=== PATIENT | female | born 2000 | race Caucasian/White ===

== ENCOUNTER 2018-05-30 09:21 | Emergency (ER) | payer OTHER ==
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
[2018-05-30] MEDS ORDERED: NORE1TAB PO (09:34)
[2018-05-30] MEDS ORDERED: ONDANSETRON 4 MG/2 ML VIAL IVP ONE (10:10)
[2018-05-30] MEDS ORDERED: KETOROLAC 30 MG/ML VIAL IVP ONE (10:10)
[2018-05-30 10:30] VITALS: BP 105/76
== END 2018-05-30 10:56 | disposition home or self-care (01) ==
LOC: ER 09:39
DX: S06.0X0A Concussion without loss of consciousness, initial encounter (principal)
CPT/HCPCS: 96374; 96375; 99284; J1885; J2405